=== PATIENT | male | born 1945 | race Caucasian/White ===

== ENCOUNTER 2022-03-21 14:43 | Outpatient (REF) | payer MEDICARE, SELFPAY ==
--- NOTE | ~2022-03-21 | FL_ITS ---
EXAMINATION: XR BARIUM SWALLOW CLINICAL INFORMATION: Dysphagia. COMPARISON: None TECHNIQUE: Modified barium swallow. FINDINGS: Modified barium swallow performed with speech pathologist. Patient swallowed multiple consistencies from thin liquid to barium-coated cookie. No nasopharyngeal reflux was identified. No Zenker's diverticulum is seen. There was some laryngeal penetration without evidence of tracheal aspiration with thin liquid and nectar thick liquid. Please refer to speech pathology report for details. FLUOROSCOPY TIME: 1.9 minutes DOSE AREA PRODUCT: 1.190 Gy-cm2 (thorpe-centimeter squared) FL/FL barium swallow modified IMPRESSION: No evidence of tracheal aspiration. Laryngeal penetration with thin liquid and nectar thick liquid. Please refer to speech pathology report for details.
--- NOTE | 2022-03-22 16:52 | MHC.SL.IMP ---
Date of Plan of Treatment: 03/21/22 Onset of Symptoms/Illness: 03/14/22 Date Treatment Started: 03/21/22 Admitting Diagnosis: Primary (admitting) Diagnosis: Motor neuron disease, unspecified Past Medical History: Heart attack Shingles Primary Speech & Language Diagnosis: R13.12 Oropharyngeal Phase Dysphagia Secondary Speech & Language Diagnosis: R47.1 Dysarthria Reason for Today's Visit: [id number] Modified Barium Swallow Study Pre-evaluation Dietary Consistencies: Regular Pre-evaluation Liquid Consistency: Thin Pre-evaluation Medication Administration: Whole with Liquid Medical History: Modified Barium Swallow Study Fluoroscopic Evaluation of Swallowing Function CPT Code 33644 Evaluation Year: 2021 Reason for Study: Patient coughs when eating and drinking. Referring Physician: Dr. Juana Jensen Evaluating Clinician: Brianna Parker MA, CCC-AUTOMOTIVE PRODUCT ENGINEER Patient ID: [id number] Study Number: 1 Patient Name: Shivam Bernal Status: Outpatient, Ambulatory/Assisted Age: 76 Gender: Male MEDICAL HISTORY: Primary (admitting) Diagnosis: Motor neuron disease, unspecified Past Medical History: Heart attack Shingles Current (pre-evaluation) Intake/Diet: Route: PO Diet Grade: Regular Liquid Consistencies: Thin Pre-Study Functional Oral Intake Scale (FOIS): 7- Total oral intake with no restrictions Pain: None reported at time of study SUBJECTIVE: Patient was referred for a modified barium swallow study by Dr. Juana Jensen of [facility]. Patient was accompanied to this exam by his and granddaughter, who assisted in providing background information. Patient is being worked up for motor neuron disease at the [facility] neurology clinic d/t balance issues and weakness. Additionally, today patient presented with moderate dysarthria. Patient?s family reports that they have noticed he slurs his words and is difficult to understand at times. Patient reports coughing when drinking liquids. Patient also describes globus sensation in his throat when eating solid food or swallowing pills. He reports having to drink water to wash it down, which will sometimes result in him coughing. Patient described an episode when a pill had come out of his nose hours after he had swallowed it. Patient denies odynophagia, stating that he does not feel pain swallowing, but does feel globus sensation which causes him discomfort. Oral Motor Exam Facial Symmetry: Symmetrical Mouth Occlusion: Normal Oral-Facial Teeth Characteristics: Intact/Normal Oral-Facial Smile (Lips) Description: Reduced ROM Oral-Facial Puff Cheeks Description: Normal Tongue Size: Normal Tongue Excursion Description: Incomplete Tongue Range of Movement Description: Reduced Tongue Speed of Movement Description: Reduced Tongue Strength of Movement (against opposing pressure): Normal Tongue Movement Characteristics: Fasciculations Oral Expression Ability: Moderate Impairment Is patient able to manage secretions?: Yes Is patient able to produce volitional cough?: Yes Food and Liquid Trials: Oral Impairment: Lip Closure: 0=No labial escape Oral Impairment: Tongue Control During Bolus Hold: 2=Posterior escape of less than half of bolus Oral Impairment: Bolus Preparation/Mastication: 1=Slow prolonged chewing/mashing with complete re-collection Oral Impairment: Bolus Transport/Lingual Motion: 2=Slowed tongue motion Oral Impairment: Oral Residue: 2=Residue collection on oral structures Oral Impairment:Initiation of Pharyngeal Swallow: 3=Bolus head in pyriforms Pharyngeal Impairment: Soft Palate Elevation: 0=No bolus between soft palate (SP)/pharyngeal wall (PW) Pharyngeal Impairment: Laryngeal Elevation: 0=Complete superior movement of thyroid cartilage (see description) Pharyngeal Impairment: Anterior Hyoid Excursion: 0=Complete anterior movement Pharyngeal Impairment: Epiglottic Movement: 1=Partial inversion Pharyngeal Impairment: Laryngeal Vestibular Closure:: 1=Incomplete: narrow column air/contrast in laryngeal vestibule Pharyngeal Impairment: Pharyngeal Stripping Wave: 0=Present: complete Pharyngeal Impairment: Pharyngeal Contraction: Did not test Pharyngeal Impairment: Pharyngoesophageal Segment Openin=Partial distention/partial duration: partial obstruction of flow Pharyngeal Impairment: Tongue Base (TB) Retraction: 3=Wide column of contrast/air between TB and posterior PW Pharyngeal Impairment: Pharyngeal Residue: 2=Collection of residue within or on pharyngeal structures Pharyngeal Impairment: Esophageal Clearance Upright Position: Did not test Impressions and Recommendations Clinical Observations: OBJECTIVE: Time-out: performed at 03:15 Evaluation Start: 03:00; Stop: 03:05 Patient Positioning: Seated 70-90 degrees Viewing Planes: LATERAL ONLY Contrast: MBSImP? Standardized Protocol using commercially prepared, standardized Barium viscosities, including: Varibar? THIN LIQUID (40% w/v, <15 cps) , Varibar? NECTAR (40% w/v, <150-450 cps) , 1/2 Shortbread Cookie (1 x1 x.25 ) MBSImP ID: [id number] MBSImP Results: Lip closure for intraoral bolus containment resulted in no labial escape. Tongue control during bolus hold resulted in posterior escape of less than half of the bolus. Bolus preparation and mastication resulted in slow, prolonged chewing/mashing but with complete re-collection. Bolus transport/lingual motion was with slowed tongue motion. Oral residue was a collection on oral structures. Initiation of the pharyngeal swallow occurred when the bolus head was in the pyriform sinuses. Soft palate elevation resulted in no bolus between the soft palate and the pharyngeal wall. Laryngeal elevation demonstrated complete superior movement of the thyroid cartilage with complete approximation of the arytenoids to the epiglottic petiole. Anterior hyoid excursion demonstrated complete anterior movement. Epiglottic movement resulted in partial inversion. Laryngeal vestibular closure was incomplete, with a narrow column of air/contrast noted within the laryngeal vestibule at the height of the swallow. Pharyngeal stripping wave was present and complete. Pharyngeal contraction could not be determined due to logistical reasons not related to physiologic impairment. Pharyngoesophageal segment opening demonstrated partial distension/partial duration, with partial obstruction of bolus flow. Tongue base retraction allowed a wide column of contrast or air between the retracted tongue base and the posterior pharyngeal wall. Pharyngeal residue was a collection of residue within or on pharyngeal structures. Esophageal clearance in the upright position could not be assessed due to logistical reasons not related to physiologic impairment. Oral Impairment Score: 10 Pharyngeal Impairment Score: 8 (absence of score, component 13) Esophageal Impairment Score: --- (absence of score, component 17) Laryngeal Penetration and Aspiration: Penetration was observed in today's study. [place]-thick, Thin Contrast entered the airway, remained above the vocal folds, and were ejected from the airway. [facility] EXAM: Patient participated in a brief neuromotor screening of the oral mechanism. Patient presented with adequate dentition for efficient mastication. Patient displayed facial symmetry at rest, during labial retraction, and during tongue protrusion. Labial retraction was reduced in range of movement. Incomplete lingual protrusion. Lateralized lingual movements were also reduced in range and markedly slow. Patient was able to maintain a labial seal when pressure was applied to his cheeks and while eating and drinking. Noted deviation of the uvula to the left side as patient phonated. Also noted continuous involuntary twitching on the tongue consistent with lingual fasciculations. Suggestive of underlying neurological condition. Strongly recommend further workup with Neurology. ASSESSMENT: Clinician Assessment: This exam was conducted by a multidisciplinary team, which included the speech pathologist, radiologist, and game technician. Patient was seated upright in a chair for lateral view only. Patient trialed the following liquid and solid consistencies: 5 mL thin liquid barium, individual cup sip with bolus hold thin liquid barium, chain sips by cup thin liquid barium, chain sips by cup nectar thick liquid barium, pureed solid (mixture applesauce with barium paste), ground solid (mixture chicken salad with barium paste), regular solid (Dasia Doone cookie coated with barium paste). Lip closure was complete, with no interlabial escape. Note posterior escape of trace amount of contrast, which collected in the valleculae and pyriform sinuses prior to the pharyngeal swallow. Mastication was mildly slow and prolonged, with slow posterior lingual movement to propel the bolus. Mild lingual residue cleared with subsequent dry swallow. Pharyngeal swallow trigger was delayed, initiated as bolus head reached pyriform sinuses. No nasopharyngeal reflux during this exam. Laryngeal elevation was complete, as was anterior hyoid excursion. Note partial epiglottic inversion and incomplete laryngeal vestibular closure, with resultant penetration. Flash penetration of both thin liquid and nectar thick liquid. Thin liquid and nectar thick liquid entered the airway above the vocal folds, and immediately, spontaneously ejected from the airway. Patient was observed to cough intermittently during episodes of penetration, indicating integrity of this protective reflex. However, no evidence of aspiration with liquids and solids during this exam. Mild pharyngeal residue in valleculae and pyriform sinuses and on the posterior pharyngeal wall effectively cleared with liquid wash. Note partial distention/partial obstruction of flow through pharyngoesophageal segment opening, which also effectively cleared with liquid wash. Liquid Intake Recommendation: Thin Liquid Intake Strategies: Small Sips, No Straws Dietary Recommendations: Regular Medication Administration: Whole with Puree Please contact the pharmacy regarding appropriate crushable or liquid drug formulations that are available whenever modified delivery is recommended. Compensatory Strategies Recommended: Sitting Upright (90 deg) No Straw Small Bites and Sips Alternate Liquids/Solids Rate of Ingestion Change Avoid Specific Foods Supervision during eating and or drinking: Intermittent Supervision Recommendation for Speech Therapy: Further Testing Needed PLAN: Intake Recommendations: Route: PO Diet Grade: Regular Liquid Consistencies: Thin Post-Study Functional Oral Intake Scale (FOIS): 7- Total oral intake with no restrictions Oropharyngeal dysphagia, characterized by prolonged oral phase, delayed pharyngeal swallow trigger, incomplete epiglottic inversion and incomplete laryngeal vestibular closure with resultant penetration, mild oral and pharyngeal retention. Evidence of flash penetration with thin liquids and nectar thick liquids. No evidence of aspiration during this exam. Dry swallow and liquid wash were effective strategies in clearing oral and pharyngeal residue. Recommend aspiration precautions given these difficulties and the neurological nature of patient?s condition: -Take small bites of food -Moisten food with sauces and gravies -Avoid tough, difficult to chew solids -Chew food well -Alternate bite of food with sip of liquid -Take one sip at a time, avoid consecutive sips or ?chugging? -Avoid the use of straws -Upright 90 degree position when eating and drinking and for at least 30 minutes afterwards -Consider taking pills in teaspoonful of pureed solid (i.e. applesauce, pudding, yogurt), follow with additional bites of pureed food or sips of liquid as needed (Please contact the pharmacy to confirm appropriate delivery of medication). Noted slurred speech quality and overall reduced speech intelligibility. Patient may benefit from speech therapy for moderate dysarthria. Recommend patient to continue monitoring his tolerance of PO. If his dysphagia worsens or if there are further concerns, he may benefit from re-evaluation by a speech pathologist. Results and recommendations were discussed with the patient and his family. Strongly recommend further workup with Neurology. Suggested Referrals: The patient might benefit from a referral to: Neurology Indication for Referral: Further workup Therapy Recommendations: Therapy will be discontinued The following compensatory strategies and/or therapeutic exercises will be part of the upcoming therapy/management plan: Bolus Volume Change Rate of Ingestion Change Liquid Wash Additional Swallow(s) per Bolus Prognosis for Improvement: The prognosis for the patient to meet nutritional needs by mouth is good based on degree of impairment. Clinician - Supplemental, Miscellaneous Communication: It is important to note MBSS objective studies are snapshots in time and Patient function might vary with factors such as time of day or concomitant medical conditions. For this reason, the final treatment plan for this patient should rest with their medical care team. Additional recommendations should be considered with the totality of the Patient in mind. Thank for the opportunity to participate in the care of this patient. If you have any questions about the content of this report, please contact the [facility] at [facility]. Education: Education regarding findings from today's study and plans for therapy were provided to Patient and family/caregiver through Verbal Instruction. Understanding was expressed by the Patient and family/caregiver. Permit Agent Clinician/Clinical Fellow: No Supervisory Statement: N/A Speech Language Pathologist: Brianna Parker M.A., CCC-AUTOMOTIVE PRODUCT ENGINEER
== END 2022-03-21 14:44 | disposition home or self-care (01) ==
LOC: HO.XRAY 14:43
PROVIDERS: Visit Provider Psychiatry & Neurology Neurology
DX: G12.20 Motor neuron disease, unspecified (principal)
CPT/HCPCS: 74230; 92611